=== PATIENT | male | born 1980 | race Caucasian/White ===

== ENCOUNTER 2020-04-27 12:10 | Day surgery (SDC) | payer MEDICAID ==
[~2020-04-27] VITALS: Ht 172.7 cm; Wt 94.5 kg
[~2020-04-27 12:10] MED LIST: SODIUM CHLORIDE 0.9% 1,000 ML IV ONE
[2020-04-27 13:32] LABS: COVID AG,FIA SOURCE NASOPHARYNGEAL
== END 2020-04-27 16:15 | disposition home or self-care (01) ==
LOC: SURGERY 12:10
PROVIDERS: ATTEND Internal Medicine Gastroenterology
DX: K62.1 Rectal polyp (principal); K57.30 Diverticulosis of large intestine without perforation or abscess without bleeding; K64.0 First degree hemorrhoids; R19.4 Change in bowel habit; Z88.1 Allergy status to other antibiotic agents; Z88.8 Allergy status to other drugs, medicaments and biological substances; Z98.890 Other specified postprocedural states; Z86.010 Personal history of colon polyps; Z20.828 Contact with and (suspected) exposure to other viral communicable diseases; Z87.891 Personal history of nicotine dependence; Z80.0 Family history of malignant neoplasm of digestive organs
CPT/HCPCS: 45380; 87426; 88305; C1769; C9803